=== PATIENT | male | born 1965 | race Caucasian/White ===

== ENCOUNTER 2023-11-06 21:39 | Inpatient (IN) | payer OTHER ==
[~2023-11-06] VITALS: Ht 162.6 cm; Wt 78.0 kg
[2023-11-06] MEDS: TETANUS, DIPHTHERIA, PERTUSSIS VAC/PF 0.5ML (>10YR OLD) IM ONE (22:45)
[2023-11-07 00:07] LABS: BASOPHILS % 1.3 % (0.0-2.0); DIFFERENTIAL COMMENT 0; EOSINOPHILS % 0.3 % (0.0-5.0); HEMOGLOBIN. 10.5 g/dL (14.0-18.0); LYMPHOCYTES % 18.9 % (20.0-50.0); MEAN CORPUSCULAR HEMOGLOBIN 36.1 pg (28.0-32.0); MEAN CORPUSCULAR HGB CONC 33.9 g/dL (31.0-37.0); MEAN CORPUSCULAR VOLUME 106.7 fL (80.0-94.0); MEAN PLATELET VOLUME 8.4 fl (7.4-10.4); NEUTROPHILS % 67.5 % (40.0-76.0); PLATELET 128 x1000/uL (130-400); RED CELL DISTRIBUTION WIDTH 15.5 % (11.6-14.6)
[2023-11-07 00:18] LABS: CHLORIDE 99 mEq/L (98-107); POTASSIUM 4.1 mEq/L (3.5-5.1); PROTHROMBIN TIME 11.5 sec (9.6-11.0); SODIUM 133 mEq/L (136-145)
[2023-11-07 00:19] LABS: CALCIUM 8.3 mg/dL (8.7-10.4); CARBON DIOXIDE 25 mEq/L (21-32)
[2023-11-07 00:24] LABS: CREATININE 0.6 mg/dL (0.6-1.3); GLUCOSE 116 mg/dL (70-105); UREA NITROGEN BLOOD 11 mg/dL (9-23)
[2023-11-07] MEDS: IOHEXOL-300 100 ML BOTTLE ONE (03:45)
[2023-11-07] MEDS: CHLORDIAZEPOXIDE 25MG CAPSULE PO ONE (10:04)
[2023-11-07] MEDS: LORAZEPAM 2MG/ML INJ IV STA (10:12)
[2023-11-07] MEDS ORDERED: MAGNESIUM/ALUMINUM HYDROXIDE/SIMETHICONE 30ML UDC PO PRN (11:00)
[2023-11-07] MEDS ORDERED: IPRATROPIUM/ALBUTEROL 0.5-3(2.5)MG/3ML NEB HHN PRN (11:00)
[2023-11-07] MEDS ORDERED: GUAIFENESIN 200MG/10ML SUGAR FREE UDC PO PRN (11:00)
[2023-11-07] MEDS ORDERED: DOCUSATE SODIUM 100MG CAPSULE PO PRN (11:00)
[2023-11-07] MEDS ORDERED: CHLORDIAZEPOXIDE 25MG CAPSULE PO SCH (11:00)
[2023-11-07] MEDS ORDERED: CLONIDINE 0.1MG TABLET PO PRN (11:00)
[2023-11-07] MEDS: PANTOPRAZOLE SODIUM 40 MG/VIAL IV SCH (11:45)
[2023-11-07] MEDS: MVI, ADULT NO.1 10 ML, FOLIC ACID 1 MG, THIAMINE HCL 100 MG in SODIUM CHLORIDE 0.9% 1,0... IV SCH (12:57)
[2023-11-07] MEDS: LORAZEPAM 2MG/ML INJ IV PRN ×2 (13:53→22:02)
[2023-11-07 16:00] VITALS: BP 135/65; PULSE 81; RESP 18; TEMP 97.8
[2023-11-07 17:13] LABS: CREATINE KINASE MB FRACTION 3.6 ng/mL (0.5-3.6)
[2023-11-07 17:15] LABS: CREATINE KINASE 948 IU/L (46-171); TROPONIN I HIGH SENSITIVITY < 4 ng/L (3.0-53)
[2023-11-07 17:23] LABS: FOLIC ACID (FOLATE) SERUM 13.69 ng/mL (>5.38); VITAMIN B12 SERUM 644 pg/mL (211-911)
[2023-11-07] MEDS: CHLORDIAZEPOXIDE 25MG CAPSULE PO SCH (17:33)
[2023-11-07] MEDS: ACETAMINOPHEN 325MG TABLET PO PRN (17:33)
[2023-11-07 18:30] VITALS: BP 135/65; PULSE 83; RESP 20; TEMP 98.4
[2023-11-07 20:00] VITALS: BP 131/61; PULSE 91; RESP 20; TEMP 99.5
[2023-11-07] MEDS: KETOROLAC 30MG/ML VIAL IV PRN (21:23)
[2023-11-07 21:55] LABS: IRON 94 ug/dL (65-175)
[2023-11-07 21:58] LABS: TOTAL IRON BINDING CAPACITY 260 ug/dl (250-425)
[2023-11-07] MEDS ORDERED: LORAZEPAM 2MG/ML INJ IV PRN (22:00)
[2023-11-07 22:13] LABS: HEPATITIS B SURFACE ANTIGEN NEGATIVE (Negative)
[2023-11-07 22:34] LABS: HEPATITIS C AB NON REACTIVE (Neg) (Negative)
[2023-11-07] MEDS ORDERED: ENOXAPARIN 80MG/0.8ML SYR SUBCUT SCH (23:45)
[2023-11-08] VITALS: BP 114/73; PULSE 81; RESP 20; TEMP 98.1
[2023-11-08 01:33] LABS: CREATINE KINASE MB FRACTION 1.8 ng/mL (0.5-3.6)
[2023-11-08 01:34] LABS: CREATINE KINASE 833 IU/L (46-171); TROPONIN I HIGH SENSITIVITY 10 ng/L (3.0-53)
[2023-11-08] MEDS: ENOXAPARIN 80MG/0.8ML SYR SUBCUT SCH (03:46)
[2023-11-08 04:00] VITALS: BP 121/64; PULSE 99; RESP 20; TEMP 98.9
[2023-11-08 07:42] LABS: BASOPHILS % 0.8 % (0.0-2.0); HEMATOCRIT. 28.3 % (42.0-52.0); HEMOGLOBIN. 9.7 g/dL (14.0-18.0); LYMPHOCYTES % 14.8 % (20.0-50.0); MEAN CORPUSCULAR HEMOGLOBIN 36.4 pg (28.0-32.0); MEAN CORPUSCULAR HGB CONC 34.2 g/dL (31.0-37.0); MEAN CORPUSCULAR VOLUME 106.4 fL (80.0-94.0); MONOCYTES % 11.7 % (2.0-8.0); NEUTROPHILS % 72.7 % (40.0-76.0); PLATELET 118 x1000/uL (130-400); RED BLOOD CELL COUNT 2.65 mill/uL (4.7-6.1); WHITE BLOOD COUNT 6.3 x1000/uL (4.5-11.0)
[2023-11-08 07:59] LABS: CHLORIDE 100 mEq/L (98-107); POTASSIUM 3.3 mEq/L (3.5-5.1); SODIUM 136 mEq/L (136-145)
[2023-11-08 08:00] VITALS: BP 144/70; PULSE 100; RESP 20; TEMP 97.8
[2023-11-08 08:00] LABS: CARBON DIOXIDE 24 mEq/L (21-32)
[2023-11-08 08:01] LABS: CALCIUM 8.4 mg/dL (8.7-10.4)
[2023-11-08 08:03] LABS: TRIGLYCERIDE 44 mg/dL (0-150)
[2023-11-08 08:04] LABS: T4 FREE 0.95 ng/dL (0.89-1.76); THYROID STIMULATING HORMONE 2.41 uIU/mL (0.55-4.78); UREA NITROGEN BLOOD 14 mg/dL (9-23)
[2023-11-08 08:05] LABS: CREATININE 0.6 mg/dL (0.6-1.3)
[2023-11-08 08:06] LABS: GLUCOSE 96 mg/dL (70-105)
[2023-11-08 08:07] LABS: ALANINE AMINOTRANSFERASE 43 IU/L (10-49); ALBUMIN 3.8 g/dL (3.2-4.8); ASPARTATE AMINOTRANSFERASE 99 IU/L (<34); LDL CHOLESTEROL 106 mg/dL (5-100)
[2023-11-08 08:08] LABS: BILIRUBIN DIRECT 0.6 mg/dL (<=3.0); BILIRUBIN TOTAL 1.9 mg/dL (0.1-1.0); CHOLESTEROL 217 mg/dL (<200); HDL CHOLESTEROL 94 mg/dL (>55); PROTEIN TOTAL 6.8 g/dL (6.0-8.3)
[2023-11-08 09:01] LABS: DIFFERENTIAL COMMENT 1
[2023-11-08] MEDS: FOLIC ACID 1MG TABLET PO SCH (10:00)
[2023-11-08] MEDS: THIAMINE HCL 100MG TABLET PO SCH (10:00)
[2023-11-08] MEDS: POTASSIUM CHLORIDE 20MEQ TABLET SR PO SCH (10:00)
[2023-11-08] MEDS: FOLIC ACID 1 MG, THIAMINE HCL 100 MG, MVI, ADULT NO.1 10 ML in DEXTROSE 5% WATER 1,000 ML IV ONE (10:01)
[2023-11-08 12:00] VITALS: BP 138/68; PULSE 98; RESP 20; TEMP 98
[2023-11-08] MEDS: CHLORDIAZEPOXIDE 25MG CAPSULE PO SCH (12:49)
[2023-11-08] MEDS ORDERED: CHLORDIAZEPOXIDE 25MG CAPSULE PO SCH (14:00)
[2023-11-08 16:00] VITALS: BP 124/62; PULSE 93; RESP 20; TEMP 98.8
[2023-11-08 20:00] VITALS: BP 141/59; PULSE 88; RESP 19; TEMP 101.7
[2023-11-08] MEDS: ACETAMINOPHEN 325MG TABLET PO PRN (23:52)
[2023-11-09] VITALS: BP 134/76; PULSE 120; RESP 19; TEMP 100.2
[2023-11-09] MEDS ORDERED: DEXT 5%/0.9% NACL 500 ML IV ONE (01:15)
[2023-11-09] MEDS: DEXT 5%/0.9% NACL 1,000 ML IV SCH (01:47)
[2023-11-09] MEDS: VANCOMYCIN 1.5GM/250ML 250 ML IV NR (01:48)
[2023-11-09 04:00] VITALS: BP 122/64; PULSE 84; RESP 20; TEMP 99.5
[2023-11-09] MEDS: PIPERACILLIN/TAZO 3.375G/50ML 50 ML IV SCH (05:44)
[2023-11-09] MEDS: CHLORDIAZEPOXIDE 25MG CAPSULE PO SCH (06:24)
[2023-11-09 07:18] LABS: CALCIUM 7.9 mg/dL (8.7-10.4); CHLORIDE 98 mEq/L (98-107); POTASSIUM 3.1 mEq/L (3.5-5.1); SODIUM 134 mEq/L (136-145)
[2023-11-09 07:19] LABS: CARBON DIOXIDE 25 mEq/L (21-32)
[2023-11-09 07:24] LABS: CREATININE 0.7 mg/dL (0.6-1.3); GLUCOSE 147 mg/dL (70-105); UREA NITROGEN BLOOD 16 mg/dL (9-23)
[2023-11-09 08:00] VITALS: BP 128/74; PULSE 76; RESP 18; TEMP 102.4
[2023-11-09] MEDS: MAGNESIUM 2 G PREMIX 50 ML IV NR (09:32)
[2023-11-09 09:59] LABS: CREATINE KINASE 318 IU/L (46-171)
[2023-11-09] MEDS: VANCOMYCIN 1GM/200ML PMX (BAXTER) IV SCH (10:07)
[2023-11-09] MEDS: POTASSIUM PHOSPHATE 30 MMOL in SODIUM CHLORIDE 0.9% 490 ML IV NR (10:27)
[2023-11-09 12:00] VITALS: BP 108/66; PULSE 101; RESP 18; TEMP 102.7
[2023-11-09 16:00] VITALS: BP 112/67; PULSE 99; RESP 18; TEMP 102.6
[2023-11-09] MEDS ORDERED: CHLORDIAZEPOXIDE 25MG CAPSULE PO SCH (17:00)
[2023-11-09 20:00] VITALS: BP 114/62; PULSE 82; RESP 20; TEMP 97.5
[2023-11-09] MEDS: VANCOMYCIN 1G PREMIX 200 ML IV SCH (21:19)
[2023-11-10] VITALS: BP 118/64; PULSE 98; RESP 20; TEMP 97.9
[2023-11-10 04:00] VITALS: BP 107/58; PULSE 77; RESP 20; TEMP 97.7
[2023-11-10] MEDS: CHLORDIAZEPOXIDE 25MG CAPSULE PO NR (05:15)
[2023-11-10 08:00] VITALS: BP 111/54; PULSE 60; RESP 18; TEMP 97.8
[2023-11-10 08:32] LABS: HEMATOCRIT. 24.4 % (42.0-52.0); HEMOGLOBIN. 8.5 g/dL (14.0-18.0); MEAN CORPUSCULAR HEMOGLOBIN 36.9 pg (28.0-32.0); MEAN CORPUSCULAR HGB CONC 34.9 g/dL (31.0-37.0); MEAN CORPUSCULAR VOLUME 105.7 fL (80.0-94.0); MEAN PLATELET VOLUME 9.5 fl (7.4-10.4); PLATELET 133 x1000/uL (130-400); RED BLOOD CELL COUNT 2.31 mill/uL (4.7-6.1); RED CELL DISTRIBUTION WIDTH 15.3 % (11.6-14.6); WHITE BLOOD COUNT 7.2 x1000/uL (4.5-11.0)
[2023-11-10 08:33] LABS: DIFFERENTIAL COMMENT 1; POTASSIUM 2.9 mEq/L (3.5-5.1)
[2023-11-10 08:34] LABS: CALCIUM 7.6 mg/dL (8.7-10.4)
[2023-11-10] MEDS ORDERED: POTASSIUM CHLORIDE 40 MEQ in DEXT 5% WATER 230 ML IV ONE (11:15)
[2023-11-10 12:00] VITALS: BP 105/61; PULSE 93; RESP 24; TEMP 97.7
[2023-11-10] MEDS: KCL 20MEQ/100ML X 2 FOR TOTAL KCL 40MEQ/200ML IV SCH (12:21)
[2023-11-10] MEDS: CHLORDIAZEPOXIDE 10MG CAPSULE PO SCH (13:12)
[2023-11-10 14:26] LABS: ANISOCYTOSIS 1+; PLATELET ESTIMATE NORMAL
[2023-11-10 16:00] VITALS: BP 119/79; PULSE 88; RESP 20; TEMP 98
[2023-11-10 16:12] VITALS: BP 110/78; PULSE 80; TEMP 97.7; O2SAT 98
[2023-11-11] MEDS ORDERED: CHLORDIAZEPOXIDE 25MG CAPSULE PO NR (09:00)
== END 2023-11-10 20:00 | disposition short-term general hospital (02) | DRG 135 ==
LOC: ER 21:39 → 7WST 11-07 09:57 → EDBD 11-07 09:57 → EDBEDREQTM 11-07 10:12 → EDBEDREQ 11-07 10:12
PROVIDERS: ADMIT Internal Medicine; ATTEND Internal Medicine
DX: S22.41XA Multiple fractures of ribs, right side, initial encounter for closed fracture (principal); F10.231 Alcohol dependence with withdrawal delirium; D68.9 Coagulation defect, unspecified; D69.6 Thrombocytopenia, unspecified; E83.39 Other disorders of phosphorus metabolism; E87.1 Hypo-osmolality and hyponatremia; J90 Pleural effusion, not elsewhere classified; K74.60 Unspecified cirrhosis of liver; F10.229 Alcohol dependence with intoxication, unspecified; D50.9 Iron deficiency anemia, unspecified; E66.9 Obesity, unspecified; I10 Essential (primary) hypertension; K76.9 Liver disease, unspecified; E78.5 Hyperlipidemia, unspecified; K80.20 Calculus of gallbladder without cholecystitis without obstruction; S50.02XA Contusion of left elbow, initial encounter; K59.00 Constipation, unspecified; E83.42 Hypomagnesemia; N50.1 Vascular disorders of male genital organs; W18.30XA Fall on same level, unspecified, initial encounter; Y93.89 Activity, other specified; Y99.8 Other external cause status; Z68.29 Body mass index [BMI] 29.0-29.9, adult; Y92.89 Other specified places as the place of occurrence of the external cause
CPT/HCPCS: 36415; 71260; 73700; 74177; 80048; 80061; 80076; 80202; 80320; 82550; 82553; 82607; 82728; 82746; 83540; 83550; 83605; 83735; 84100; 84439; 84443; 84484; 85025; 86705; 86850; 86900; 87077; 87186; 87340; 93970; 99285; A6261; C9113; J1650; J1885; J2060; J2543; J3370; J3411; J3475; J3480; J3490; J7030; J7040; J7042; J7070; Q9967; G0480